=== PATIENT | female | born 1995 ===

== ENCOUNTER 2021-01-09 12:18 | Outpatient (CLI) | payer OTHER ==
[2021-01-09] MEDS ORDERED: LACTATED RINGERS 500 ML IV ONE (12:46)
[2021-01-09 13:08] LABS: Bilirubin,Urine NEG (Negative); Blood,Urine SM (Negative); Color,Urine Yellow (Yellow); Mucus,Urine 1+ /HPF; Protein,Urine <15 mg/dL mg/dL (Negative)
[2021-01-09 13:16] LABS: Amphetamine Screen,Urine PRESUMPTIVE NEGATIVE; Benzodiazepines Screen,Urine PRESUMPTIVE NEGATIVE; Cannabinoid Screen,Urine PRESUMPTIVE POSITIVE; Cocaine Screen,Urine PRESUMPTIVE NEGATIVE; Methadone Screen,Urine PRESUMPTIVE NEGATIVE; Opiate Screen,Urine PRESUMPTIVE NEGATIVE
[2021-01-09 13:26] VITALS: BP 107/61
--- NOTE | 2021-01-09 15:12 | Ultrasound Report ---
. ULTRASOUND OBSTETRIC LIMITED INDICATION / CLINICAL INFORMATION: R/O placental abruption. Placental location.. Clinical Gestational Age (GA) in weeks, days: 25 weeks 1 day TECHNIQUE: Transabdominal. COMPARISON: None available. FINDINGS: Single live intrauterine in cephalic presentation. heart rate measures 140 bpm. Posterior placenta is free of the os. No lifting or separation of the placenta. Cervix is closed measuring 4.3 cm. IMPRESSION: Single live intrauterine . No significant abnormality. No evidence of placental abruption. Signer Name: Sami Avila MD Signed: 01/09/2021 3:08 PM Workstation Name: [id number][id number]
== END 2021-01-09 14:51 | disposition home or self-care (01) ==
LOC: TRG 12:18 → APU 12:20 → TRG 14:51
PROVIDERS: ATTEND Obstetrics & Gynecology
DX: O26.892 Other specified pregnancy related conditions, second trimester (principal); R10.9 Unspecified abdominal pain; Z3A.24 24 weeks gestation of pregnancy
CPT/HCPCS: 59025; 76815; 80307; 81001